=== PATIENT | male | born 1965 | race Caucasian/White ===

== ENCOUNTER 2016-08-06 06:32 | Day surgery (SDC) | payer OTHER ==
[2016-08-04 14:56] VITALS: BMI 44.3
[~2016-08-06 06:32] MED LIST: LACTATED RINGERS 1,000 ML IV SCH; SODIUM CHLORIDE 0.9% 1,000 ML IV SCH
[2016-08-06] MEDS ORDERED: LIDOCAINE 1% INJ 10MG/ML (20 ML MDV) ONE (07:41)
[2016-08-06] MEDS ORDERED: PROPOFOL 10 MG/ML 20 ML VIAL IV ONE (07:41)
[2016-08-06 07:42] LABS: Anion Gap 10 mmol/L; Blood Urea Nitrogen 10 mg/dL (9-20); Calcium 9.1 mg/dL (8.4-10.2); Carbon Dioxide 23 mmol/L (22-30); Chloride 110 mmol/L (98-107); Glucose 102 mg/dL (74-99); Non-African American GFR(MDRD) >60 (>60 ml/min/1.73 sqM); Potassium 4.3 mmol/L (3.5-5.1); Sodium 143 mmol/L (137-145)
[2016-08-06 08:03] VITALS: TEMP 98
--- NOTE | 2016-08-06 08:32 | CE ---
DATE OF SERVICE: A 51-year-old male patient with persistent atrial fibrillation, symptomatic who has failed Rythmol. He was brought in for electrical cardioversion o after oral loading with flecainide for the last 4 days, 150 mg twice daily. PROCEDURE: Successful electrical cardioversion was performed with a single 360 joules biphasic shock in the AP configuration. Patient converted to sinus rhythm. Following that, a 12-lead ECG was performed, which shows sinus rhythm, prolonged IA interval of 236 ms, narrow QRS, normal ST segments. PLAN: Add atenolol 12.5 mg p.o. daily. Continue flecainide 150 mg twice daily. Continue anticoagulation. Continue antihypertensive therapy. Follow up with Dr. Cheryl Regan in about 10 days and on that day will get a 12-lead ECG again and a Holter monitor. Proceed with antral isolation of the pulmonary veins, cryoablation as scheduled. Patient will continue anticoagulation. He understands that he should not stop anticoagulation.
[2016-08-06 08:35] VITALS: RESP 16
[2016-08-06 09:18] VITALS: BP 122/85
[2016-08-06 09:36] VITALS: PULSE 82
== END 2016-08-06 10:24 | disposition home or self-care (01) ==
LOC: CATHEP 06:32
PROVIDERS: ATTEND Internal Medicine Clinical Cardiac Electrophysiology
DX: I48.1 Persistent atrial fibrillation (principal); E78.2 Mixed hyperlipidemia; I10 Essential (primary) hypertension; E03.9 Hypothyroidism, unspecified; Z79.899 Other long term (current) drug therapy; Z79.01 Long term (current) use of anticoagulants
CPT/HCPCS: 93005; 92960; 80048; J2001; J2704

== ENCOUNTER 2016-11-03 06:35 | Day surgery (SDC) | payer OTHER ==
[2016-10-27 08:49] VITALS: BMI 45.8
[2016-11-03] MEDS ORDERED: IV FLUID CONTINUATION 1,000 ML IV ONE (07:21)
[2016-11-03] MEDS ORDERED: LIDOCAINE URO-JET JELLY 2% 5 ML KIT ONE (07:39)
[2016-11-03] MEDS ORDERED: HEPARIN SODIUM,PORCINE 10,000 UNIT/ML 1 ML VIAL ONE (07:48)
[2016-11-03] MEDS ORDERED: SUCCINYLCHOLINE CHLORIDE 100 MG/5 ML SYR IV ONE (07:48)
[2016-11-03] MEDS ORDERED: fentaNYL (PF) 50 MCG/ML 2 ML AMP ONE (07:48)
[2016-11-03] MEDS ORDERED: PROPOFOL 10 MG/ML 20 ML VIAL IV ONE (07:48)
[2016-11-03] MEDS ORDERED: MIDAZOLAM 2 MG/2 ML VIAL ONE (07:48)
[2016-11-03] MEDS ORDERED: LIDOCAINE 1% INJ 10MG/ML (20 ML MDV) ONE (07:48)
[2016-11-03] MEDS ORDERED: HEPARIN SODIUM,PORCINE 5,000 UNIT/ML 1 ML VIAL ONE (07:48)
[2016-11-03] MEDS ORDERED: ePHEDrine SULFATE/0.9% NACL/PF 50 MG/5 ML SYRINGE IV ONE (07:48)
[2016-11-03] MEDS ORDERED: PHENYLEPHRINE-0.9% NACL SYG 1 MG/10 ML SYRINGE ONE ×2 (07:48)
[2016-11-03] MEDS ORDERED: LIDOCAINE 2% INJ 20 MG/ML SQ ONE ×2 (08:21→08:22)
[2016-11-03] MEDS ORDERED: HEPARIN SODIUM,PORCINE/D5W PMX 25,000 UNIT in DEXTROSE/WATER 1 500ML.BAG IV ONE (08:40)
[2016-11-03] MEDS ORDERED: PROTAMINE SULFATE 10 MG/ML 5 ML VIAL IV ONE ×2 (11:10→11:13)
[2016-11-03] MEDS ORDERED: IOHEXOL 350 MG/ML 100 ML BOTTLE INJ ONE (11:13)
[2016-11-03] MEDS ORDERED: ACETAMINOPHEN IV (For NPO) 1,000 MG in EMPTY BAG 1 BAG IVPB ONE (11:17)
[2016-11-03] MEDS ORDERED: ACETAMINOPHEN TAB 325 MG TAB PO PRN (11:17)
[2016-11-03] MEDS ORDERED: LACTATED RINGERS 1,000 ML IV ONE (11:25)
--- NOTE | 2016-11-03 11:57 | P.PCN ---
Preoperative Diagnosis: Procedure Diagnostic EP study followed by pulmonary vein isolation via transseptal route, cryoablation Indication for the procedure Persistent atrial fibrillation, drug refractory, failed Rythmol, symptomatic, on appropriate anticoagulation with Xarelto 20 mg by mouth daily Procedures performed Femoral arterial catheterization for hemodynamic monitoring and sampling Diagnostic EP study CS pacing and recording Intracardiac echocardiography Left and right transseptal catheterization Catheters mapping of pulmonary veins, [id number] Pulmonary vein isolation using cryoablation [id number] Intraesophageal temperature monitoring Result Complete isolation of all 4 pulmonary veins with documented entrance block with catheter mapping techniques Phrenic nerve monitoring, normal right phrenic nerve function pre-and postprocedure No rise in intraesophageal temperatures Postoperative Diagnosis: Procedure(s) Performed: Implants: Indications for Procedure: Operative Findings: Description of Procedure:
[2016-11-03] MEDS ORDERED: ACETAMINOPHEN IV (For NPO) 1,000 MG/100 ML VIAL IVPB ONE (12:30)
[2016-11-03] MEDS: FLECAINIDE 50 MG TAB PO SCH (20:17)
[2016-11-03 20:34] VITALS: RESP 16
[2016-11-03] MEDS ORDERED: amLODIPine 10 MG TAB PO SCH (21:30)
[2016-11-03] MEDS ORDERED: RIVAROXABAN 10 MG TAB PO SCH (21:30)
[2016-11-03] MEDS ORDERED: ATORVASTATIN 40 MG TAB PO SCH (21:30)
[2016-11-04] MEDS ORDERED: LEVOTHYROXINE 75 MCG TAB PO SCH (06:30)
--- NOTE | 2016-11-04 07:41 | P.DS ---
Providers Attending physician: Florian Bull Primary care physician: [facility] Course: Patient is doing well postprocedure. No chest discomfort no undue shortness of breath no dizziness lightheadedness no pleuritic chest pain no cough expectoration no GI complaints or GI complaints. Groin is healed well no hematoma. No problems at night did vitals are stable blood pressure 114/61 mmHg heart rate in the 80s and 90s sinus rhythm. On examination breath sounds are normal and clear no rhonchi no crackles. Abdomen is soft nontender heart sounds are normal normal S1 normal S2 normal no murmurs no gallops, extremities are warm no edema groin site healed well no hematoma Twelve-lead ECG shows sinus rhythm normal ST segments normal cardiac intervals Impression Morbid obesity BMI 46.3 Obstructive sleep apnea patient stops breathing at night according to his , has refused sleep apnea assessment in the past, discussed with the patient in detail Persistent atrial fibrillation, drug refractory and symptomatic, failed Rythmol Status post cryoablation of all 4 pulmonary veins with documented entrance block Hypertension, essential Dyslipidemia Suggest Continue all home medications without any changes including medications for hypertension, stroke prevention secondary to atrial fibrillation and cardiac medications May go home today by 2 PM if ablating in the hallways comfortably without any groin issues and vitals stable and asymptomatic Follow-up next week, patient has an appointment on November 10 Sleep apnea assessment, this was discussed with the patient's , this was discussed with the patient, he has agreed to go for sleep apnea assessment. He understands that the failure rate for atrial fibrillation will be high if sleep apnea is not addressed and if his obesity is not addressed. Patient Condition at Discharge: Stable Plan - Discharge Summary New Discharge Prescriptions: No Action amLODIPine BESYLATE/BENAZEPRIL [amLODIPine BESYLATE/BENAZEPRIL 10-20 mg] 1 cap PO DAILY Rivaroxaban [Xarelto] 20 mg PO DAILY Simvastatin [Zocor] 40 mg PO DAILY Sildenafil [Revatio] 20 mg PO DAILY PRN PRN Reason: SEXUAL DYSFUNCTION Flecainide Acetate [Tambocor] 150 mg PO BID Atenolol [Tenormin] 12.5 mg PO DAILY #30 dose Levothyroxine Sodium [Synthroid] 225 mcg PO DAILY Discharge Medication List Flecainide Acetate [Tambocor] 150 mg PO BID 08/04/16 [History] Rivaroxaban [Xarelto] 20 mg PO DAILY 08/04/16 [History] Sildenafil [Revatio] 20 mg PO DAILY PRN 08/04/16 [History] Simvastatin [Zocor] 40 mg PO DAILY 08/04/16 [History] amLODIPine BESYLATE/BENAZEPRIL [amLODIPine BESYLATE/BENAZEPRIL 10-20 mg] 1 cap PO DAILY 08/04/16 [History] Atenolol [Tenormin] 12.5 mg PO DAILY #30 dose 08/06/16 [Rx] Levothyroxine Sodium [Synthroid] 225 mcg PO DAILY 10/27/16 [History]
--- NOTE | 2016-11-04 08:54 | CE ---
This is a 51-year-old male patient who underwent an atrial fibrillation for persistent drug refractory, symptomatic atrial fibrillation, pulmonary in isolation. Patient was brought to the EP Lab in a fasting state. Written informed consent was obtained prior to the procedure. The patient was in sinus rhythm at the start of the study. He has undergone electrical cardioversion in the past for symptomatic atrial fibrillation. Right and left groins are prepped and the procedure is performed under general anesthesia. The right and left groins are prepped as per protocol, 1% Lidocaine was used for local anesthesia. Femoral arterial access and femoral venous access was obtained. Three femoral venous accesses were obtained, one femoral artery access was obtained for hemodynamic monitoring with sampling. Heparin was infused and ACT was maintained above 300. At the end of the procedure, heparin was reversed with protamine. Diagnostic catheters were placed in the high right atrium, coronary sinus, HIS bundle area and RV. Sinus cycle length 876 ms, NH interval 194 ms, QRS 118 ms, QT 399 ms. HV interval 54 ms. Sinus node recovery times are within normal limits, AV node Wenckebach block for 13 ms on the high right atrium, AV node Wenckebach block 430 ms on the coronary sinus, AH interval 61 ms, VA Wenckebach block greater than 600 ms. With atrial pacing, no atrial fibrillation is induced; however, the catheter manipulation during cryoablation, A. fib was induced and patient underwent cardioverted at the end of the procedure. Left ( ) was performed, RA pressure 24 x 7 x 16 mmHg, LA pressure at 22 x 10 x 15 mmHg. This was performed on the intracardiac echo guidance into atrial septals and pulmonary venous identified. There was no pericardial effusion prior to the start of the procedure or at the end of the procedure. The cryo sheath was placed, the cryo balloon was placed. The chief catheter was placed in the left atrium. Sequentially, the left superior followed by the left inferior followed by the right superior and then the right inferior venous were addressed. The cryo balloon was placed in the ostium for all these veins and cryoablation was successfully performed. Intraesophageal temperatures were monitored, phrenic nerve was monitored and there was no evidence of phrenic injury at the end of the procedure. Left superior pulmonary vein: Two cryoablation lesions of 180 seconds each with excellent temperature parameters. Vein is completely isolated. Left inferior pulmonary vein: Two cryoablation lesions of 180 seconds each with excellent temperature parameters achieved. The right superior pulmonary vein underwent cryoablation during phrenic nerve pacing 120 second, followed by 150 second lesion was delivered with excellent temperatures achieving an excellent temperature achieved. There was no evidence of phrenic nerve injury and the vein was completely isolated. Right inferior pulmonary vein as isolated to the phrenic nerve pacing. Three lesions applied 135 seconds, 100 seconds and 180 seconds with complete isolation of the vein at the antral level. Excellent temperatures were achieved. No evidence of cathi nerve injury. During catheter manipulation and in the right side when attempting to cannulate the right-sided venous, atrial fibrillation is induced and at the end of the procedure, cardioversion was performed to sinus rhythm. Patient tolerated the procedure well without acute complications or catheter removed. Hemostasis was assured and heparin was reversed. IMPRESSION: Successful isolation of all 4 pulmonary veins. PLAN: Continue anticoagulation and continue all other cardiac medications, antihypertensive therapy. I would also recommend sleep apnea assessment. This has all been recommended to the patient and minimize ( ) consumption. MTDD
[2016-11-04] MEDS ORDERED: LISINOPRIL 20 MG TAB PO SCH (09:00)
[2016-11-04] MEDS ORDERED: amLODIPine 10 MG TAB PO SCH (09:00)
[2016-11-04] MEDS ORDERED: RIVAROXABAN 10 MG TAB PO SCH (09:00)
[2016-11-04] MEDS ORDERED: ATENOLOL 12.5 MG TAB PO SCH (09:00)
[2016-11-04] MEDS ORDERED: ATORVASTATIN 40 MG TAB PO SCH (09:00)
[2016-11-04] MEDS: FLECAINIDE 50 MG TAB PO SCH (09:33)
[2016-11-04 13:30] VITALS: BP 125/76; PULSE 74; TEMP 97.9
== END 2016-11-04 14:11 | disposition home or self-care (01) ==
LOC: CATHEP 06:35 → 6SEL 11:05 → CATHEP 11-04 14:11
PROVIDERS: ATTEND Internal Medicine Clinical Cardiac Electrophysiology
DX: I48.1 Persistent atrial fibrillation (principal); I10 Essential (primary) hypertension; E03.9 Hypothyroidism, unspecified; Z79.899 Other long term (current) drug therapy; E78.5 Hyperlipidemia, unspecified; Z82.49 Family history of ischemic heart disease and other diseases of the circulatory system; Z79.01 Long term (current) use of anticoagulants; E66.01 Morbid (severe) obesity due to excess calories; Z68.42 Body mass index [BMI] 45.0-49.9, adult; G47.33 Obstructive sleep apnea (adult) (pediatric)
CPT/HCPCS: 85347; 93662; 93609; 93656; C1894 ×3; C1769 ×3; C1730 ×3; C1759; C1893; C1733; C1766; J2001; J2720; Q9967; J1644; J0131

== ENCOUNTER → 2016-12-31 | Outpatient (CLI) | payer OTHER ==
--- NOTE | 2016-12-31 20:11 | CONS ---
CONSULTATION DATE OF CONSULTATION: 12/31/2016. 51-year-old gentleman has been evaluated in the sleep center for possible obstructive sleep apnea-hypopnea syndrome. HISTORY OF PRESENT ILLNESS/SLEEP WAKE EVALUATION: SLEEP SCHEDULE: The patient usual sleep schedule on working days from 09:30 to 10 p.m. until 4:30 am 4:45 am. On weekends, he sleeps from around 11:00 pm to 12 midnight until 8 or 9:00 am. FALLING ASLEEP: No problems with falling asleep at all. He has TV set in bedroom. DURING SLEEP: According to his , he has loud snoring and witnessed episodes of stopped breathing during the sleep. He wakes up from sleep about 3 times with 3 episodes of nocturia. DURING THE DAY: He denied any significant daytime sleepiness. Dennard Sleepiness Scale is 0. PAST MEDICAL HISTORY: Positive for 2 episodes of atrial fibrillation. First time converted to normal sinus rhythm by cardioversion and second time by cardiac ablation. Last episode in October of 2016, hypertension, hypothyroidism. MEDICATIONS: 1. Synthroid. 2. Amlodipine. 3. Simvastatin. 4. . 5. Atenolol. 6. . SOCIAL HISTORY: Negative for smoking. Alcohol consumption of 1 glass of wine daily. FAMILY HISTORY: Hypertension, heart problems, arthritis, cancer. REVIEW OF SYSTEMS: Snoring, awakenings from sleep. PHYSICAL EXAM: gentleman without distress, BP 153/94, HR 70, RR 16, height 5 feet 9 inches, weight 321, BMI 47.4 neck 18-3/4 inches in circumference. Temperature 98.3. Oxygen saturation at room air 97%. Oropharynx extremely low position of soft palate. Neck Supple, no JVD. Thyroid is not palpable. LUNGS Clear to percussion and to auscultation. Good air exchange. No wheezing or rhonchi. HEART S1, S2 regular. No murmurs, gallops, or rubs. ABDOMEN: Obese. Soft and nontender. Bowel sounds are present. No organomegaly appreciated. EXTREMITIES No clubbing or cyanosis. CLINICAL PRACTITIONER Awake, alert, and oriented X3. Cranial nerves 2 to 7 intact. There is no fasciculation or atrophy. noted. No focal deficits observed. IMPRESSION: 1. Snoring, witnessed episodes of stopped breathing during sleep, low position of soft palate, multiple awakenings from sleep, obstructive sleep apnea-hypopnea syndrome. 2. Obesity BMI 47.4. 3. History of 2 episodes of atrial fibrillations. Atrial fibrillation converted to normal sinus rhythm by cardioversion and cardiac ablation. 4. Hypothyroidism. 5. Hypertension. 6. Hyperlipidemia. PLAN: 1. Polysomnography for evaluation of patient's breathing during sleep. 2. CPAP/BiPAP titration if sleep study confirms obstructive sleep apnea-hypopnea syndrome. 3. Preferable position during sleep on the side. 4. No driving if patient feels any sleepiness. Patient is aware of civil and criminal liability for unsafe driving. 5. I will see patient for follow up visit to explain results of testing and following plan. Thank you very much for referring this patient for consultation. Sincerely, David Abarca MD, PhD, FAASM Diplomat of [employer] Business Development Analyst of [facility] [place] MMODL / SHERMANN: [id number] /
== END | disposition home or self-care (01) ==
LOC: SLEEP 16:43
PROVIDERS: ATTEND Internal Medicine
DX: G47.33 Obstructive sleep apnea (adult) (pediatric) (principal); E66.9 Obesity, unspecified; Z68.42 Body mass index [BMI] 45.0-49.9, adult; E03.9 Hypothyroidism, unspecified; I10 Essential (primary) hypertension; E78.5 Hyperlipidemia, unspecified; Z86.79 Personal history of other diseases of the circulatory system; Z79.899 Other long term (current) drug therapy
CPT/HCPCS: 99211

== ENCOUNTER → 2020-08-22 | Outpatient (CLI) | payer OTHER | END | disposition home or self-care (01) | LOC: LABPAT 09:07 | PROVIDERS: ATTEND Orthopaedic Surgery | DX: Z01.812 Encounter for preprocedural laboratory examination (principal); M16.12 Unilateral primary osteoarthritis, left hip | CPT/HCPCS: 87070 ==

== ENCOUNTER 2020-09-02 06:23 | Day surgery (SDC) | payer OTHER ==
[2020-08-28 10:48] VITALS: BMI 39.4
--- NOTE | 2020-09-01 16:39 | HP ---
HISTORY AND PHYSICAL REASON FOR ADMISSION: His surgery is scheduled for 09/02/2020. HISTORY OF PRESENT ILLNESS: Alexander Gannon is a 55-year-old patient seen with symptomatic left hip osteoarthritis. Options for treatment were discussed with him. He elected to proceed with left total hip arthroplasty. Consent regarding the procedure was obtained. Medical clearance was provided by Dr. Mccoy. Cardiac clearance was provided by Dr. Bull. PAST MEDICAL HISTORY: Hypertension, hypothyroidism, atrial fibrillation. PAST SURGICAL HISTORY: Cardiac ablation surgery. MEDICATIONS: Amlodipine, simvastatin, Synthroid, Xarelto. ALLERGIES: NONE. SOCIAL HISTORY: Denies tobacco use. PHYSICAL EXAMINATION: Evaluation of the left hip: Very limited range of motion with significant pain. Positive impingement sign. Straight leg raise negative. Distal neurovascular exam intact. RADIOGRAPHS: Radiographs of the left hip reveal severe osteoarthritic changes. IMPRESSION: 1. Left hip osteoarthritis. 2. Hypertension. 3. Hypothyroidism. 4. Atrial fibrillation. PLAN: Direct anterior left total hip arthroplasty. Surgery scheduled for 09/02/2020. MMODL / IJN: [id number] /
[~2020-09-02 06:23] MED LIST changes: +ACETAMINOPHEN TAB 500 MG TAB PO PRN; +LIDOCAINE 1% (10MG/ML) FOR IV START INTRADERMA PRN; +MELOXICAM 7.5 MG TAB PO PRN; +ONDANSETRON 4 MG/2 ML VIAL IVP ONE; +ROPIVACAINE/EPI/CLONIDINE/KET 50 ML SYRINGE MISCELLANE PRN; -SODIUM CHLORIDE 0.9% 1,000 ML IV SCH; +TRANEXAMIC ACID 1,000 MG in SODIUM CHLORIDE 0.9% 100 ML IVPB PRN; +ceFAZolin 3 GM in SODIUM CHLORIDE 0.9% 100 ML IVPB PRN
[2020-09-02] MEDS ORDERED: SUCCINYLCHOLINE CHLORIDE VIAL 200 MG/10 ML VIAL IV ONE (07:25)
[2020-09-02] MEDS ORDERED: GLYCOPYRROLATE 0.2 MG/ML 2 ML VIAL ONE (07:25)
[2020-09-02] MEDS ORDERED: NEOSTIGMINE 1 MG/ML 10 ML VIAL ONE (07:25)
[2020-09-02] MEDS ORDERED: SODIUM CHLORIDE 0.9% 100 ML BAG ONE (07:25)
[2020-09-02] MEDS ORDERED: HYDROmorphone (PF) 1 MG/ML ONE (07:25)
[2020-09-02] MEDS ORDERED: PROPOFOL 10 MG/ML 20 ML VIAL IV ONE (07:25)
[2020-09-02] MEDS ORDERED: fentaNYL (PF) 50 MCG/ML 2 ML AMP ONE (07:25)
[2020-09-02] MEDS ORDERED: TRANEXAMIC ACID 1,000 MG/10 ML VIAL ONE (07:25)
[2020-09-02] MEDS ORDERED: MIDAZOLAM 2 MG/2 ML VIAL ONE (07:25)
[2020-09-02] MEDS ORDERED: ROCURONIUM 10 MG/ML (5 ML VIAL) IV ONE (07:25)
[2020-09-02] MEDS ORDERED: ceFAZolin 1,000 MG in SODIUM CHLORIDE 0.9% 1,000 ML IRRIGATION ONE (08:08)
[2020-09-02] MEDS ORDERED: LACTATED RINGERS 1,000 ML IV ONE ×2 (09:21→09:41)
--- NOTE | 2020-09-02 09:40 | P.OP ---
Date of Procedure: 09/02/20 Preoperative Diagnosis: Left hip osteoarthritis Postoperative Diagnosis: Left hip osteoarthritis Procedure(s) Performed: Direct anterior left total hip arthroplasty Implants: 1. Depuy Corail KA size 20 standard collar pressfit femoral stem 2. Depuy pinnacle 58 mm press-fit acetabular shell 3. Depuy pinnacle neutral polyethylene acetabular liner 36 mm ID 58 mm OD 4. Biolox delta ceramic femoral head +1.5 36 mm Anesthesia: GABINOA, local Surgeon: Gilbert Olmedo Customer Success Director #1: Samuel Still Estimated Blood Loss (ml): 350 Pathology: other (Femoral head) Condition: stable Disposition: PACU Indications for Procedure: 55-year-old gentleman seen with symptomatic left hip osteoarthritis. After having treatment options discussed, he elected to proceed with total hip arthroplasty. Operative Findings: see description of procedure Description of Procedure: The patient was taken to the operative suite. Patient underwent a general anesthetic by the department of anesthesia. Patient was then transferred to the [place] table. Patient was given preoperative IV antibiotics and TXA. Both lower extremities were placed in standard leg spars. The hip was then prepped and valerie ped in the normal sterile orthopedic fashion. A standard anterior incision was made beginning 3 cm lateral and 1 cm distal to the ASIS extending 10 cm. Dissection was then carried down through the subcutaneous soft tissues down to the fascia overlying the tensor fascia odalys. An incision was now made through the fascia. Careful dissection was taken down exposing the tensor fascia odalys muscle. A Cobra retractor was now placed along the medial femoral neck and a second one along the lateral femoral neck. The venous circumflex vessels were now identified, cauterized and clipped. We identified the anterior hip capsule. An incision was made through the hip capsule along the lateral border. I performed a partial anterior capsulectomy. Retractors were now placed around the femoral neck itself. A femoral neck cut was now made with a sagittal saw. It was completed with an osteotome at the lateral neck area. The femoral head was now removed without difficulty. The extremity was now rotated to 45 of external rotation. It was locked in position. Residual labrum was now debrided out. Serial reaming was performed of the acetabulum while Samuel RHODES assisted holding an anterior retractor for exposure. Once we reached the appropriate size and a trial was position and fit nicely. The appropriate size was now chosen opened and made available. It was introduced into the acetabulum without difficulty. The C-arm/fluoroscopy was now brought into the operative field. We made sure we had a true AP pelvic view. We now under direct C- arm/fluoroscopy introduced into the acetabular component with appropriate version and inclination. I held the cup in appropriate position while Samuel RHODES used a mallet to seat the acetabular component. I noted the component now to be well seated and stable. Acetabular cup introduce her was removed. The C-arm was pulled back. An appropriate liner was introduced and clicked into position. It was felt to be stable. At this point retractors were removed. The extremity was now placed into 120 external rotation with no traction. The leg was now dropped to the ground and adducted. Appropriate retractors were now positioned along the proximal femur. We also placed our femoral look into position. Additional capsular releasing was performed to gain access to the proximal femur. We now used a box osteotome. A canal finder was now utilized. Serial broaching was now performed with the assistance of Samuel RHODES tapping the broaches down with a mallet while held the broach in appropriate rotation and position. This was done until we reached the appropriate size with good overall rotational stability. Appropriate calcar planing was performed. A trial head/neck was placed into position. The hip was now reduced. The C- arm/fluoroscopy was brought back into the operative field. I obtained an AP pelvis to ascertain leg length alignment which appeared be adequate. The trial components well positioned and appeared adequate position. The C- arm/fluoroscopy was pulled back. Retractors were repositioned and the hip was dislocated. The leg was again taken down to the ground and adducted. Appropriate retractors were repositioned as well as the femoral hook. All trial components were removed. The femoral implant was opened along with the femoral head. The femoral implant was introduced on the appropriate handle into our pre-broached area. I held the component position while Samuel RHODES used a mallet to seat the femoral component. The femoral component was now noted to be well seated and stable.. The femoral head was introduced with good positioning and fixation noted. Retractors were now removed. The hip was now reduced. There appeared be good positioning of the hip confirmed on intraoperative fluoroscopy. Spot films were obtained to document this. A second gram of TXA was given. The deep and superficial soft tissues were infiltrated with local analgesic. Bipolar cautery had been utilized intermittently through the procedure for hemostasis. The wound was irrigated copiously with pulse lavage mechanical irrigation. The fascia was repaired with Vicryl suture. The subcutaneous soft tissues were repaired in layers with Vicryl suture. The skin was approximated with pernio/Dermabond. Sterile dressings were applied. Patient was then awakened, transferred to a bed and taken to recovery in stable condition. Samuel RHODES assisted with the complex procedure.
[2020-09-02] MEDS ORDERED: ONDANSETRON 4 MG/2 ML VIAL IVP PRN (09:41)
[2020-09-02] MEDS ORDERED: HYDROcodone/APAP 5-325MG 1 EACH TAB PO PRN (09:41)
[2020-09-02] MEDS ORDERED: HYDROcodone/APAP 7.5-325MG 1 EACH TAB PO PRN (09:41)
[2020-09-02] MEDS ORDERED: HYDROmorphone 1 MG/ML 1 ML SYRINGE IVP PRN (09:41)
[2020-09-02] MEDS ORDERED: HYDROmorphone 0.5 MG/0.5 ML SYRINGE IVP PRN (09:41)
[2020-09-02] MEDS ORDERED: NALOXONE 0.4 MG/ML 1 ML VIAL IV PRN (09:41)
[2020-09-02] MEDS ORDERED: HYDROmorphone 0.2 MG/1 ML SYRINGE IVP PRN (09:41)
--- NOTE | 2020-09-02 09:42 | XR ---
EXAMINATION TYPE: XR Hip Limited LT, FL guidance operating room DATE OF EXAM: 09/02/2020 CLINICAL HISTORY: Left hip pain and osteoarthritis. TECHNIQUE: Fluoroscopy. Intraoperative limited views left hip. COMPARISON: Outside left hip x-ray July 10, 2020. FINDINGS: Fluoroscopic guidance was provided during total left hip replacement procedure performed ronnell Olmedo. A total of 26 seconds of fluoroscopic time was utilized during the procedure and 1 spot intraoperative image is acquired. Single intraoperative image obtained shows metallic hardware from total left hip arthroplasty satisfa ctory in position on frontal projection. IMPRESSION: As Above.
[2020-09-02 10:00] VITALS: RESP 16; TEMP 97.6
[2020-09-02] MEDS: HYDROmorphone 0.5 MG/0.5 ML SYRINGE IVP PRN ×2 (10:07→10:21)
[2020-09-02 12:47] VITALS: BP 116/75; PULSE 55
[2020-09-02] MEDS ORDERED: ceFAZolin 3 GM in SODIUM CHLORIDE 0.9% 100 ML IVPB ONE (13:00)
== END 2020-09-02 14:49 | disposition home health service (06) ==
LOC: OR 06:23
PROVIDERS: ATTEND Orthopaedic Surgery
DX: M16.12 Unilateral primary osteoarthritis, left hip (principal); I10 Essential (primary) hypertension; E78.5 Hyperlipidemia, unspecified; G47.33 Obstructive sleep apnea (adult) (pediatric); I48.91 Unspecified atrial fibrillation; I49.9 Cardiac arrhythmia, unspecified; E03.9 Hypothyroidism, unspecified; Z79.899 Other long term (current) drug therapy; Z79.01 Long term (current) use of anticoagulants
CPT/HCPCS: 27130; 97110; 97161; 86900; 86901; 86850; 88300; 73501; 36415; C1776; J2250; J0330; J2710; J0690 ×2; J2405; J3010; J1170 ×2; J2704

== ENCOUNTER → 2024-04-22 | Outpatient (CLI) | payer OTHER | END | disposition home or self-care (01) | LOC: LABPAT 10:13 | PROVIDERS: ATTEND Orthopaedic Surgery | DX: Z01.812 Encounter for preprocedural laboratory examination (principal); M16.11 Unilateral primary osteoarthritis, right hip; Z22.322 Carrier or suspected carrier of Methicillin resistant Staphylococcus aureus | CPT/HCPCS: 86850; 86900; 86901; 87070 ==

== ENCOUNTER 2024-05-01 05:38 | Day surgery (SDC) | payer OTHER ==
[~2024-05-01 05:38] MED LIST changes: -ACETAMINOPHEN TAB 500 MG TAB PO PRN; -LACTATED RINGERS 1,000 ML IV SCH; -LIDOCAINE 1% (10MG/ML) FOR IV START INTRADERMA PRN; -MELOXICAM 7.5 MG TAB PO PRN; -ONDANSETRON 4 MG/2 ML VIAL IVP ONE; -ROPIVACAINE/EPI/CLONIDINE/KET 50 ML SYRINGE MISCELLANE PRN; +TRANEXAMIC 1,000 MG/100ML-NACL 1,000 MG in SALINE 1 100ML.BAG IVPB PRN; -TRANEXAMIC ACID 1,000 MG in SODIUM CHLORIDE 0.9% 100 ML IVPB PRN; -ceFAZolin 3 GM in SODIUM CHLORIDE 0.9% 100 ML IVPB PRN
[2024-05-01] MEDS: LACTATED RINGERS 1,000 ML IV SCH (06:50)
[2024-05-01] MEDS: IV FLUID CONTINUATION 1,000 ML IV ONE (06:50)
[2024-05-01] MEDS: MELOXICAM 7.5 MG TAB PO PRN (06:54)
[2024-05-01] MEDS: ACETAMINOPHEN TAB 500 MG TAB PO PRN (06:54)
[2024-05-01] MEDS: DEXAMETHASONE SOD PHOSPHATE 4 MG/ML 1 ML VIAL IV ONE (07:00)
[2024-05-01] MEDS: ONDANSETRON 4 MG/2 ML VIAL IVP ONE (07:00)
[2024-05-01] MEDS: MIDAZOLAM 2 MG/2 ML VIAL IV ONE (07:08)
--- NOTE | 2024-05-01 07:20 | P.ANPRN ---
Procedure Note - Anesthesia - Nerve Block Performed Right Trevon Single Time Out Performed: Yes Date of Procedure: 05/01/24 Procedure Start Time: 07:07 Procedure Stop Time: 07:12 Location of Patient: PreOp Indication: Acute Post-Operative Pain, Analgesia, Requested by Surgeon Sedation Type: Sedate with meaningful contact maintained Preparation: Sterile Prep Position: Supine Catheter: None Needle Types: Pajunk Needle Gauge: 21 Ultrasound used to visualize needle placement: Yes Ultrasound used to observe medication spread: Yes Injectate: 0.5% Ropivacaine (see comment for volume) (Ropi 20nl+[id number]) Blood Aspirated: No Pain Paresthesia on Injection Noted: No Resistance on Injection: Normal Image Stored and Saved: Yes Events: Uneventful and Well Tolerated
[2024-05-01] MEDS ORDERED: PHENYLEPHRINE-0.9% NACL SYG 1,000 MCG/10 ML SYRINGE ONE (07:28)
[2024-05-01] MEDS ORDERED: DEXAMETHASONE SOD PHOSPHATE 10 MG/ML 1 ML VIAL ONE (07:28)
[2024-05-01] MEDS ORDERED: ROPIVACAINE 5 MG/ML 30 ML VIAL ONE (07:28)
[2024-05-01] MEDS ORDERED: TRANEXAMIC 1,000 MG/100ML-NACL PREMIX BAG ONE (07:28)
[2024-05-01] MEDS ORDERED: GLYCOPYRROLATE 0.2 MG/ML 2 ML VIAL ONE (07:28)
[2024-05-01] MEDS ORDERED: NEOSTIGMINE 1 MG/ML 10 ML VIAL ONE (07:28)
[2024-05-01] MEDS ORDERED: HYDROmorphone (PF) 1 MG/ML ONE (07:28)
[2024-05-01] MEDS ORDERED: ROCURONIUM 10 MG/ML (5 ML VIAL) IV ONE (07:28)
[2024-05-01] MEDS ORDERED: LIDOCAINE 1% INJ 10MG/ML (20 ML MDV) ONE (07:28)
[2024-05-01] MEDS ORDERED: SUCCINYLCHOLINE CHLORIDE 200 MG/10 ML VIAL IV ONE (07:28)
[2024-05-01] MEDS ORDERED: PROPOFOL 10 MG/ML 20 ML VIAL IV ONE (07:28)
[2024-05-01] MEDS ORDERED: MIDAZOLAM 2 MG/2 ML VIAL ONE (07:28)
[2024-05-01] MEDS ORDERED: ePHEDrine 50 MG/ML 1 ML VIAL ONE (07:28)
[2024-05-01] MEDS ORDERED: fentaNYL (PF) 50 MCG/ML 2 ML AMP ONE (07:28)
[2024-05-01] MEDS ORDERED: DEXAMETHASONE SOD PHOSPHATE 4 MG/ML 1 ML VIAL ONE (07:28)
[2024-05-01] MEDS: ceFAZolin 3 GM in SODIUM CHLORIDE 0.9% 100 ML IVPB PRN (07:30)
[2024-05-01] MEDS: ceFAZolin 1,000 MG in SODIUM CHLORIDE 0.9% 1,000 ML IRRIGATION ONE (08:00)
[2024-05-01] MEDS: LACTATED RINGERS 1,000 ML IV ONE (08:52)
[2024-05-01] MEDS ORDERED: LACTATED RINGERS 1,000 ML IV ONE (09:25)
[2024-05-01] MEDS ORDERED: NALOXONE 0.4 MG/ML 1 ML VIAL IV PRN (09:25)
[2024-05-01] MEDS ORDERED: HYDROmorphone 1 MG/ML 1 ML SYRINGE IVP PRN (09:25)
[2024-05-01] MEDS ORDERED: HYDROcodone/APAP 7.5-325MG 1 EACH TAB PO PRN (09:25)
[2024-05-01] MEDS ORDERED: ONDANSETRON 4 MG/2 ML VIAL IVP PRN (09:25)
[2024-05-01] MEDS ORDERED: HYDROmorphone 0.5 MG/0.5 ML SYRINGE IVP PRN ×2 (09:25)
--- NOTE | 2024-05-01 09:25 | P.OP ---
Date of Procedure: 05/01/24 Preoperative Diagnosis: Right hip osteoarthritis Postoperative Diagnosis: Right hip osteoarthritis Procedure(s) Performed: Direct anterior right total hip arthroplasty Implants: 1. DePuy Corail 135 degree standard collared KA size 18 press-fit femoral stem 2. DePuy Henlawson 58 mm press-fit acetabular shell 3. DePuy Henlawson neutral polyethylene acetabular liner 36 mm ID 58 mm OD 4. Biolox delta ceramic femoral head +5 36 mm Anesthesia: GETA, regional (Erector spinae block) Surgeon: Gilbert Olmedo Wool Hat Flanger #1: Samuel Still Estimated Blood Loss (ml): 45 Pathology: none sent Condition: stable Disposition: PACU Indications for Procedure: 59-year-old patient seen with symptomatic right hip osteoarthritis. After having treatment options discussed, he elected to proceed with direct anterior right total hip arthroplasty. Operative Findings: See description of procedure Description of Procedure: The patient was taken to the operative suite. Patient underwent a general anesthetic by the department of anesthesia. Patient was then transferred to the [place] table. Patient was given preoperative IV antibiotics and TXA. Both lower extremities were placed in standard leg spars. The hip was then prepped and draped in the normal sterile orthopedic fashion. A standard anterior incision was made beginning 3 cm lateral and 1 cm distal to the ASIS extending 10 cm. Dissection was then carried down through the subcutaneous soft tissues down to the fascia overlying the tensor fascia odalys. An incision was now made through the fascia. Careful dissection was taken down exposing the tensor fascia odalys muscle. A Cobra retractor was now placed along the medial femoral neck and a second one along the lateral femoral neck. The venous circumflex vessels were now identified, cauterized and clipped. We identified the anterior hip capsule. An incision was made through the hip capsule along the lateral border. I performed a partial anterior capsulectomy. Retractors were now placed around the femoral neck itself. A femoral neck cut was now made with a sagittal saw. It was completed with an osteotome at the lateral neck area. The femoral head was now removed without difficulty. The extremity was now rotated to 60 of external rotation. It was locked in position. Residual labrum was now debrided out. Serial reaming was performed of the acetabulum while Samuel RHODES assisted holding an anterior retractor for exposure. Once we reached the appropriate size and a trial was position and fit nicely. The appropriate size was now chosen opened and made available. It was introduced into the acetabulum without difficulty. The C-arm/fluoroscopy was now brought into the operative field. We made sure we had a true AP pelvic view. We now under direct C- arm/fluoroscopy introduced into the acetabular component with appropriate version and inclination. I held the cup in appropriate position while Samuel RHODES used a mallet to seat the acetabular component. I noted the component now to be well seated and stable. Acetabular cup introduce her was removed. The C-arm was pulled back. An appropriate liner was introduced and clicked into position. It was felt to be stable. At this point retractors were removed. The extremity was now placed into 140 external rotation with no traction. The leg was now dropped to the ground and adducted. Appropriate retractors were now positioned along the proximal femur. We also placed our femoral look into position. Additional capsular releasing was performed to gain access to the proximal femur. We now used a box osteotome. A canal finder was now utilized. Serial broaching was now performed with the assistance of Samuel RHODES tapping the broaches down with a mallet while held the broach in appropriate rotation and position. This was done until we reached the appropriate size with good overall rotational stability. Appropriate calcar planing was performed. A trial head/neck was placed into position. The hip was now reduced. The C- arm/fluoroscopy was brought back into the operative field. I obtained an AP pelvis which demonstrated adequate leg length alignment. The trial components appeared adequately sized and positioned. The C-arm/fluoroscopy was pulled back. Retractors were repositioned and the hip was dislocated. The leg was again taken down to the ground and adducted. Appropriate retractors were repositioned as well as the femoral hook. All trial components were removed. The femoral implant was opened along with the femoral head. The femoral implant was introduced on the appropriate handle into our pre-broached area. I held the component position while Samuel RHODES used a mallet to seat the femoral component. The femoral component was now noted to be well seated and stable.. The femoral head was introduced with good positioning and fixation noted. Retractors were now removed. The hip was now reduced. There appeared be good positioning of the hip confirmed on intraoperative fluoroscopy. Spot films were obtained to document this. A second gram of TXA was given. Bipolar cautery had been utilized intermittently through the procedure for hemostasis. The wound was irrigated copiously with pulse lavage mechanical irrigation. The fascia was repaired with Vicryl suture. The subcutaneous soft tissues were repaired in layers with Vicryl suture. The skin was approximated with pernio/Dermabond. Sterile dressings were applied. Patient was then awakened, transferred to a bed and taken to recovery in stable condition. Samuel RHODES assisted in all aspects of this complex procedure.
--- NOTE | 2024-05-01 09:27 | XR ---
Intraoperative/procedural fluoroscopic services were provided right hip replacement. Hardware appears intact. Total fluoroscopy time is 15 seconds with a total of 3 submitted images to PACS. Total DAP 2 .9475 Gycm2. Please see the operative note for further details. [facility], , 05/01/2024 9:24 AM
[2024-05-01 09:44] VITALS: TEMP 97.8
[2024-05-01] MEDS: HYDROmorphone 0.5 MG/0.5 ML SYRINGE IVP PRN (09:53)
[2024-05-01 10:24] VITALS: RESP 16
[2024-05-01] MEDS: HYDROcodone/APAP 5-325MG 1 EACH TAB PO PRN (10:56)
[2024-05-01] MEDS: ceFAZolin 3 GM in SODIUM CHLORIDE 0.9% 100 ML IVPB ONE (11:14)
--- NOTE | 2024-05-01 12:27 | HP ---
HISTORY AND PHYSICAL Surgery: 05/01/2024. HISTORY OF PRESENT ILLNESS: Alexander Gannon is a 59-year-old gentleman, seen with symptomatic right hip osteoarthritis. We discussed options regarding treatment. He elected to proceed with direct anterior right total hip arthroplasty. Consents obtained. Medical clearance provided by Dr. Joey Mccoy. Cardiac clearance provided by Dr. KARMEN Farias. PAST MEDICAL HISTORY: Hyperlipidemia, hypertension, hypothyroidism, cardiovascular disease. SURGICAL HISTORY: Cardiac ablation. DAILY MEDICATIONS: 1. Amlodipine. 2. Atenolol. 3. Synthroid. 4. Xarelto. 5. Rosuvastatin. ALLERGIES: None. SOCIAL HISTORY: Denies tobacco use. PHYSICAL EVALUATION OF THE RIGHT HIP: He has limited range of motion with severe pain. Positive hip impingement sign. Straight-leg raise is negative. Distal neurovascular exam is intact. IMAGING STUDIES: Radiographs of the right hip reveal severe osteoarthritic changes. IMPRESSION: 1. Right hip osteoarthritis. 2. Hypertension. 3. Hyperlipidemia. 4. Atrial fibrillation. PLAN: Direct anterior right total hip arthroplasty. MMODL / IJN: [id number] /
[2024-05-01 12:34] VITALS: BP 136/82; PULSE 77
== END 2024-05-01 13:02 | disposition home health service (06) ==
LOC: OR 05:38
PROVIDERS: ATTEND Orthopaedic Surgery
DX: M16.11 Unilateral primary osteoarthritis, right hip (principal); G89.18 Other acute postprocedural pain; I48.0 Paroxysmal atrial fibrillation; I11.9 Hypertensive heart disease without heart failure; E78.5 Hyperlipidemia, unspecified; E89.0 Postprocedural hypothyroidism; G47.33 Obstructive sleep apnea (adult) (pediatric); Z79.01 Long term (current) use of anticoagulants; Z79.890 Hormone replacement therapy; Z79.899 Other long term (current) drug therapy; Z85.850 Personal history of malignant neoplasm of thyroid; Z96.642 Presence of left artificial hip joint
CPT/HCPCS: 27130; 64999; 97161; 73501; C1776; J2250; J1100; J0690 ×2; J2405; J1171